=== PATIENT | female | born 1960 | race Native Hawaiian/Other Pacific Islander ===

== ENCOUNTER 2023-06-13 23:05 | Emergency (ER) | payer OTHER ==
[~2023-06-13] VITALS: Ht 172.7 cm; Wt 56.2 kg
[2023-06-13 23:05] VITALS: TEMP 98.3
[2023-06-14 00:17] LABS: POTASSIUM 4.2 mmol/L (3.6-5.2)
[2023-06-14 00:29] LABS: PLATELET COUNT 220 K/uL (152-353)
[2023-06-14 00:40] VITALS: BP 110/68
[2023-06-14] MEDS ORDERED: BUSPIRONE10 MG PO (06:28)
[2023-06-14] MEDS ORDERED: DIVALPROEX250 M1 PO (06:28)
[2023-06-14] MEDS ORDERED: FLEET ENEMA RE (06:29)
[2023-06-14] MEDS ORDERED: GABA300C2 PO (06:29)
[2023-06-14] MEDS ORDERED: NITR100C56 PO (06:30)
[2023-06-14] MEDS ORDERED: MILK OF MA400 MG/5 M PO (06:31)
[2023-06-14] MEDS ORDERED: TEMA15CA19 PO (06:32)
[2023-06-14] MEDS ORDERED: PAROXETINE30 MG PO (06:32)
== END 2023-06-14 00:40 | disposition other institution (70) ==
LOC: ED 23:05
PROVIDERS: Internal Medicine Endocrinology, Diabetes & Metabolism
DX: Z00.8 Encounter for other general examination (principal); R45.1 Restlessness and agitation; E51.2 Wernicke's encephalopathy
CPT/HCPCS: 80053; 85027; 93005; 99283